=== PATIENT | female | born 1990 | race Caucasian/White ===

== ENCOUNTER 2020-04-19 06:34 | Emergency (ER) | payer MEDICAID ==
[~2020-04-19] VITALS: Ht 152.4 cm; Wt 58.9 kg
--- NOTE | 2020-04-19 06:54 | NUR ---
Report given to AUBREY Ghosh. Care transferred.
--- NOTE | 2020-04-19 07:20 | NUR ---
police in speaking with pt at this time.
[2020-04-19] MEDS ORDERED: ACETAMINOPHEN 500 MG TABLET PO ONE (07:30)
[2020-04-19] MEDS ORDERED: PLEASE ENTER ALLERGIES MC SCH (08:00)
--- NOTE | 2020-04-19 08:03 | NUR ---
PER OFFICER IN SPEAKING WITH PT, PT WILL BE DCd WITH [facility] AT [phone]
[2020-04-19] MEDS ORDERED: ACETAMINOPHEN 500 MG TABLET ONE (08:07)
[2020-04-19 08:10] VITALS: BP 109/78
--- NOTE | 2020-04-19 08:19 | NUR ---
PT ON PHONE WITH [employer] AT THIS TIME.
--- NOTE | 2020-04-19 08:42 | NUR ---
PT SEEN GETTING SAFELY INTO [facility].
== END 2020-04-19 08:41 | disposition home or self-care (01) ==
LOC: ED 07:45
DX: S00.12XA Contusion of left eyelid and periocular area, initial encounter (principal); F17.200 Nicotine dependence, unspecified, uncomplicated; Y04.8XXA Assault by other bodily force, initial encounter; Y93.89 Activity, other specified; Y92.89 Other specified places as the place of occurrence of the external cause; Y99.8 Other external cause status
CPT/HCPCS: 70450; 70486; 99285